=== PATIENT | female | born 1970 | race Caucasian/White ===

== ENCOUNTER → 2019-02-12 | Day surgery (SDC) | payer MEDICAID ==
[~2019-02-12] MED LIST: Buffered Lidocaine 1% SYRIN* 1 ML/SYRINGE INTRADERM ONE; Dexamethasone IV* 4 MG/ML 1 ML (4 MG) IV SLOW PU ONE; Dexamethasone IV* 4 MG/ML 1 ML (4 MG) ONE; Famotidine IV* 10 MG/ML 2 ML (20 mg) IV ONE; Famotidine IV* 10 MG/ML 2 ML (20 mg) ONE; HYDROcodone/ACETAMIN 5-325 MG* 1 TAB PO PRN; Ketorolac INJ* 30 MG/ML 1 ML VIAL IV PRN; Lactated Ringers 1000 ML Bag* 1,000 ML IV SCH; Lidocaine 1% INJ* 10 MG/ML 30 ML SDV ONE; Lidocaine 2% PF * 5 ML VIAL ONE; Midazolam* 1 MG/ML 2 ML VIAL (2 MG) ONE; Naloxone* 0.4 MG/ML 1 ML VIAL IV PRN; Ondansetron INJ* 2 MG/ML VIAL IV PRN; Propofol* 10 MG/ML 20 ML BTL ONE; fentaNYL* 50 MCG/ML 2 ML VIAL (100 MCG VIAL) IV PRN; fentaNYL* 50 MCG/ML 2 ML VIAL (100 MCG VIAL) ONE; oxyCODONE/Acetamin 5/325 MG* TAB PO PRN
[2019-02-12 09:32] VITALS: BP 108/66
--- NOTE | 2019-02-12 11:09 | OP ---
CC: Dr. Henry OPERATIVE REPORT: DATE OF OPERATION: 02/12/19 DATE OF : 66 SURGEON: Dr. Henry. ANODE BUILDER: JOANN Bautista ANESTHESIA: Local MAC. PRE-OP DIAGNOSIS: Right thumb mass. POST-OP DIAGNOSIS: Right thumb mass. OPERATIVE PROCEDURE: Removal of right thumb mass. ESTIMATED BLOOD LOSS: Zero. TOURNIQUET TIME: About 10 minutes with a Tourni-Cot. INDICATION FOR PROCEDURE: Lorene is a 48-year-old woman who has a painful mass on the dorsal aspe ct of her right thumb IP joint. She presents for removal. DESCRIPTION OF PROCEDURE: The patient was brought to the operating room, was given a sedation anesth etic and a digital block with 10 cc of 1% plain lidocaine. The skin of her right hand and forearm wa s prepped and draped in the usual sterile fashion. A Tourni-Cot was placed on the thumb for exsangui nation and was left up for the duration of the procedure. An H-shaped incision was made on the dorsa l aspect of the IP joint of the right thumb. The skin flaps were dissected away from the mass, which appeared to be a ganglion cyst emanating from the IP joint. It was removed in its entirety and sent for pathology. Then, both sides of the extensor tendon were incised longitudinally exposing the radames nt. There was a small osteophyte on the ulnar side and this was debrided with a rongeur. The wound was copiously irrigated with saline. The skin edges were reapproximated with 4-0 nylon suture in an interrupted fashion. The wound was dressed with Xeroform, 4x4, Webril, and Coban. The patient karin ated the procedure well and was brought to the recovery room in good condition. [id number]/[facility] #: [id number]
== END | disposition home or self-care (01) ==
LOC: OREAST 06:55
PROVIDERS: ATTEND Orthopaedic Surgery
DX: M67.441 Ganglion, right hand (principal); M06.9 Rheumatoid arthritis, unspecified; J45.909 Unspecified asthma, uncomplicated; F41.8 Other specified anxiety disorders; F17.210 Nicotine dependence, cigarettes, uncomplicated
CPT/HCPCS: 88304; J1100; J2250; J2704; J3010